=== PATIENT | male | born 1950 | race Caucasian/White ===

== ENCOUNTER 2022-09-10 12:56 | Emergency (ER) | payer OTHER, MEDICARE ==
[~2022-09-10] VITALS: Ht 172.7 cm; Wt 103.0 kg
[2022-09-10 13:44] LABS: BASOPHILS % (AUTO) 0.6 % (0-1); EOSINOPHILS # (AUTO) 0.1 X10'3 (0-0.9); EOSINOPHILS % (AUTO) 1.6 % (0-6); HEMATOCRIT 46.4 % (42.0-52.0); HEMOGLOBIN 15.5 g/dl (14.0-17.9); LYMPHOCYTES # (AUTO) 1.4 X10'3 (1.1-4.8); LYMPHOCYTES % (AUTO) 20.7 % (21-51); MEAN CORPUSCULAR HEMOGLOBIN 30.2 PG (27.0-31.0); MEAN CORPUSCULAR HGB CONC 33.4 g/dL (33.0-36.5); MEAN CORPUSCULAR VOLUME 90.7 FL (78-98); MEAN PLATELET VOLUME 8.9 FL (7.4-10.4); MONOCYTES # (AUTO) 0.6 X10'3 (0-0.9); MONOCYTES % (AUTO) 8.5 % (2-12); NEUTROPHILS # (AUTO) 4.6 X10'3 (1.8-7.7); NEUTROPHILS % (AUTO) 68.6 % (42-75); PLATELET COUNT 184 X10'3 (140-440); RED BLOOD COUNT 5.12 X10'6 (4.70-6.10); RED CELL DISTRIBUTION WIDTH 14.1 % (11.5-14.5); WHITE BLOOD COUNT 6.8 X10'3 (4.5-11.0)
[2022-09-10 13:50] LABS: ALANINE AMINOTRANSFERASE 20 U/L (12-78); ALBUMIN 3.5 G/DL (3.4-5.0); ALBUMIN/GLOBULIN RATIO 0.9 (1.1-1.5); ALKALINE PHOSPHATASE 62 IU/L (46-116); ANION GAP 17 (8-16); ASPARTATE AMINO TRANSFERASE 16 U/L (10-37); BILIRUBIN,TOTAL 0.5 MG/DL (0.1-1.0); BLOOD UREA NITROGEN 19 MG/DL (7-18); BUN/CREATININE RATIO 15.8 (5.4-32.0); CALCIUM 9.3 MG/DL (8.5-10.1); CHLORIDE 99 MMOL/L (99-107); GLUCOSE 418 MG/DL (70-104); POTASSIUM 4.1 MMOL/L (3.5-5.1); SODIUM 135 MMOL/L (135-145); TOTAL CARBON DIOXIDE 19.5 MMOL/L (24-32); TOTAL PROTEIN 7.2 G/DL (6.4-8.2); eGFR 60 ML/MIN
[2022-09-10] MEDS ORDERED: normal saline 1000ML IV soln IVB ONE (17:20)
--- NOTE | 2022-09-10 18:16 | NUR ---
Pt was chatting with me and another nurse not too long ago. As came back to his room to scan the bag of NS. The significant other said pt was feeling dizzy. I checked the patient and he was not responding to my command and was staring. SBP >200. Dr. Gaitan was notified by Becky LUNA. BS 386 mg/dl. Pt was responding to command with few words. Dr. Gaitan seen the patient and another nurse doing neuro exam.
[2022-09-10 20:18] VITALS: BP 152/88
== END 2022-09-10 20:24 | disposition home or self-care (01) ==
LOC: ER 12:56
DX: E11.65 Type 2 diabetes mellitus with hyperglycemia (principal); Z88.0 Allergy status to penicillin
CPT/HCPCS: 36415; 70450; 80053; 82948; 85025; 93005; 96360; 96361; 99285; J7030

== ENCOUNTER 2023-09-24 14:29 | Emergency (ER) | payer OTHER ==
[~2023-09-24] VITALS: Ht 172.7 cm; Wt 82.6 kg
[~2023-09-24 14:29] MED LIST: ALFU10TA PO; ALLO300T2 PO; ASPI-1071 PO; ATOR80TA PO; CETI-90 PO; CHOL500049 PO; CLOP-32 PO; DICL100G59 TOP; DOXY100T67 PO; EMPAGLIFLOZIN 25 MG PO; FENO145T26 PO; GABA-530 PO; INSU100I40 SUBCUT; LEVO100C4 PO; MECL-302 PO; MULT-1085 PO; POLY119P2 PO; SEMA0.258 SUBCUT; TIMOLOL MALEATE 0.5% EACHEYE; XAL0.005OS EACHEYE
[2023-09-24 15:09] LABS: BASOPHILS % (AUTO) 0.6 % (0-1); EOSINOPHILS # (AUTO) 0.1 X10'3 (0-0.9); EOSINOPHILS % (AUTO) 1.8 % (0-6); HEMATOCRIT 46.4 % (42.0-52.0); HEMOGLOBIN 15.8 g/dl (14.0-17.9); LYMPHOCYTES # (AUTO) 1.8 X10'3 (1.1-4.8); LYMPHOCYTES % (AUTO) 26.4 % (21-51); MEAN CORPUSCULAR HEMOGLOBIN 30.4 PG (27.0-31.0); MEAN CORPUSCULAR VOLUME 89.3 FL (78-98); MEAN PLATELET VOLUME 8.5 FL (7.4-10.4); MONOCYTES # (AUTO) 0.5 X10'3 (0-0.9); MONOCYTES % (AUTO) 7.6 % (2-12); NEUTROPHILS # (AUTO) 4.5 X10'3 (1.8-7.7); NEUTROPHILS % (AUTO) 63.6 % (42-75); PLATELET COUNT 209 X10'3 (140-440); RED BLOOD COUNT 5.19 X10'6 (4.70-6.10); RED CELL DISTRIBUTION WIDTH 13.3 % (11.5-14.5)
[2023-09-24 15:29] LABS: ALANINE AMINOTRANSFERASE 14 U/L (12-78); ALBUMIN 3.3 G/DL (3.4-5.0); ALBUMIN/GLOBULIN RATIO 0.8 (1.1-1.5); ALKALINE PHOSPHATASE 87 IU/L (46-116); ANION GAP 14 (8-16); ASPARTATE AMINO TRANSFERASE 6 U/L (10-37); BILIRUBIN,TOTAL 0.6 MG/DL (0.1-1.0); BLOOD UREA NITROGEN 14 MG/DL (7-18); BUN/CREATININE RATIO 14.7 (10.0-20.0); CALCIUM 9.1 MG/DL (8.5-10.1); CHLORIDE 99 MMOL/L (99-107); CREATININE 0.95 MG/DL (0.60-1.10); LIPASE 21 U/L (16-77); POTASSIUM 3.8 MMOL/L (3.5-5.1); SODIUM 138 MMOL/L (135-145); TOTAL CARBON DIOXIDE 24.7 MMOL/L (24-32); TOTAL PROTEIN 7.2 G/DL (6.4-8.2); eCRCL 67 ML/MIN; eGFR 78 ML/MIN
[2023-09-24] MEDS ORDERED: NPH, human insulin isophane inj. SQ STA (15:31)
[2023-09-24 15:33] LABS: GLUCOSE 426 MG/DL (70-104)
[2023-09-24 15:48] LABS: ACETONE SMALL (NEGATIVE)
[2023-09-24] MEDS: insulin regular, human 10 units/0.1 ml syringe SQ ONE (17:32)
[2023-09-24] MEDS ORDERED: LANTUS SUBCUT (19:50)
[2023-09-24 20:11] VITALS: BP 182/101; PULSE 69; RESP 16; TEMP 98.3; O2SAT 97
== END 2023-09-24 20:18 | disposition home or self-care (01) ==
LOC: ER 14:30
DX: E11.65 Type 2 diabetes mellitus with hyperglycemia (principal); Z88.0 Allergy status to penicillin; Z79.82 Long term (current) use of aspirin; Z79.2 Long term (current) use of antibiotics; Z79.899 Other long term (current) drug therapy
CPT/HCPCS: 36415; 80053; 82009; 82948; 83690; 85025; 93005; 96372; 99284; J1815